=== PATIENT | male | born 1985 | race Caucasian/White ===

== ENCOUNTER 2020-02-28 10:11 | Emergency (ER) | payer BC, SELFPAY ==
--- NOTE | ~2020-02-28 | XR_ITS ---
EXAMINATION: XR foot LT min 3V DATE: 02/28/2020 10:39 INDICATION: Pain at the second and third metatarsophalangeal joints. TECHNIQUE: Dorsoplantar, two oblique and lateral views of the left foot were obtained. COMPARISON: None. FINDINGS: Alignment is normal. Suggestion of subtle linear sclerosis at the proximal metadiaphyseal region of t he third metatarsal suspicious for stress fracture. No periosteal reaction or cortical discontinuity. Joint spaces are normal. No evident cortical erosions. Soft tissues are unremarkable. IMPRESSION: 1. Subtle linear sclerosis at the proximal metadiaphyseal region of the third metatarsal raising susp icion for stress fracture. Correlate clinically and if indicated MRI or three-phase bone scan could b e obtained for more definitive determination. Reviewed, dictated and finalized at location B. IMPRESSION: 1. Subtle linear sclerosis at the proximal metadiaphyseal region of the third m etatarsal raising suspicion for stress fracture. Correlate clinically and if in dicated MRI or three-phase bone scan could be obtained for more definitive dete rmination.
--- NOTE | 2020-02-28 10:16 | ED.GENADULT ---
HPI - General Adult General Chief complaint: Extremity Injury, Lower Stated complaint: left foot painful/swollen Time Seen by Provider: 02/28/20 10:25 Source: patient Mode of arrival: ambulatory Limitations: no limitations History of Present Illness HPI narrative: 34-year-old male patient presents to the [facility] with complaints of pain to the left foot that started yesterday. Patient states that most of this pain is on the sole of his foot right under his second and third toe. Patient denies any injury to the area that he is aware of. Patient states that he does wear steel toed boots for work daily but has never had any problems with that before. Patient states that not standing on the foot and just sitting there he rates his pain at a 7 out of 10 however when he does apply pressure and stand and walk his pain goes up to a 10. Patient states he has been taking ibuprofen for the pain. Related Data Home Medications Medication Instructions Recorded Confirmed No Home Medications 02/28/20 02/28/20 Allergies Allergy/AdvReac Type Severity Reaction Status Date / Time codeine AdvReac Intermediate nausea and Verified 05/20/15 15:51 diaphoresis Review of Systems Review of Systems: Narrative: CONSTITUTIONAL: Denies fever, chills, or sweats. EYES: Denies visual changes, redness, or discharge. ENT: Denies rhinorrhea, congestion, sore throat, or otalgia. CARDIOVASCULAR: Denies chest pain, palpitations, or edema. RESPIRATORY: Denies cough or dyspnea. GASTROINTESTINAL: Denies abdominal pain, nausea, vomiting, or diarrhea. GENITOURINARY: Denies dysuria or hematuria. SKIN: Denies rash or itching. MUSCULOSKELETAL: Denies back pain, joint pain, or myalgia. Positive left foot pain NEUROLOGIC: Denies headache, numbness, or weakness. PSYCHIATRIC: Denies anxiety or depression. PMFSH Comments At the time of my signature I agree with nursing past medical history, surgical, social, and family history. There is no relevant family history pertinent to the presenting complaint. Exam Narrative: Exam Narrative: GENERAL: Well-appearing, well-nourished, and in no acute distress. HEAD: Normocephalic, atraumatic. EYES: PERRLA and EOMI. ENT: Nares clear, no rhinorrhea or epistaxis. Mucous membranes moist. NECK: Supple. No lymphadenopathy CHEST: Clear to auscultation. No respiratory distress. HEART: Regular rate and rhythm. No murmur heard. Normal peripheral pulses. ABDOMEN: Soft, nontender, nondistended, normal active bowel sounds. EXTREMITIES: Normal range of motion. No edema. SKIN: Warm, dry, no rash. NEURO: No focal deficits. Alert and oriented x3. Course Reevaluation(s) Reevaluation #1: Reevaluated patient after x-ray had been completed. Discussed with him that it does show that he has a possible stress fracture to the left foot where he is complaining of pain. Discussed with patient that we will go ahead and wrap his foot with an Pedro wrap as well as put him in Ortho postop shoe. Discussed with patient that I will refer him to the orthopedic surgeon who is on-call for further follow-up. I would also take him off work until he can follow-up with orthopedic surgeon for further evaluation and treatment. Patient may take Tylenol and ibuprofen as needed for pain. Patient verbalized understanding denies any other questions or concerns at this time. Date: 02/28/20 Time: 10:56 Vital Signs Vital signs: Vital Signs Temperature 36.8 C 02/28/20 10:17 Pulse Rate 70 02/28/20 10:17 Respiratory Rate 16 02/28/20 10:17 Blood Pressure 150/95 H 02/28/20 10:17 Pulse Oximetry 99 02/28/20 10:17 Temperature 36.8 C 02/28/20 10:17 Pulse Rate 70 02/28/20 10:17 Respiratory Rate 16 02/28/20 10:17 Blood Pressure 150/95 H 02/28/20 10:17 Pulse Oximetry 99 02/28/20 10:17 Vital signs reviewed. The patient has been informed that they may have pre-hypertension or Hypertension based on a BP reading in the department. I recommen
[2020-02-28 10:17] VITALS: BP 150/95; PULSE 70; RESP 16; TEMP 36.8; O2SAT 99
--- NOTE | 2020-02-28 10:39 | PC.NURSE ---
PT DECLINED ICE FOR COMFORT AND WHEELCHAIR TO RADIOLOGY AND ROOM
== END 2020-02-28 11:05 | disposition home or self-care (01) ==
PROVIDERS: Emergency Provider Nurse Practitioner Family
DX: M84.375A Stress fracture, left foot, initial encounter for fracture (principal); X58.XXXA Exposure to other specified factors, initial encounter
CPT/HCPCS: 73630; 99204; G0463

== ENCOUNTER 2020-03-17 09:08 | Outpatient (CLI) | payer BC, SELFPAY ==
--- NOTE | ~2020-03-17 | MR_ITS ---
EXAMINATION: MR foot LT wo con DATE: 03/17/2020 09:55 INDICATION: Left foot injury, initial encounter. TECHNIQUE: Magnetic resonance imaging (MRI) of the left foot was performed without intravenous contra st. Sequences included sagittal T1-weighted FSE and STIR FSE, long-axis PD-weighted FS FSE and PD-braden ghted FSE, and short-axis PD-weighted FS FSE and T1-weighted FSE. COMPARISON: Left foot radiographs 03/05/2020, 02/28/2020 FINDINGS: Bone alignment is normal. There is bone marrow edema in proximal metaphysis of second proxi mal phalanx at its plantar and lateral aspect, consistent with stress reaction. There is soft tissue edema around this area, and flexor digitorum longus tendon is medially displaced. Lisfranc ligament i s normal. The extensor tendons are normal. The muscles are normal. IMPRESSION: 1. Soft tissue edema plantar to the proximal metaphysis of second proximal phalanx laterally with med ial displacement of the flexor digitorum longus tendon. These findings suggest tear of adjacent struc tures such as the lateral slip of flexor digitorum brevis tendon and the flexor tendon sheath. Reviewed, dictated and finalized at location A. IMPRESSION: 1. Soft tissue edema plantar to the proximal metaphysis of second proximal phal anx laterally with medial displacement of the flexor digitorum longus tendon. T hese findings suggest tear of adjacent structures such as the lateral slip of f lexor digitorum brevis tendon and the flexor tendon sheath.
== END 2020-03-17 09:09 ==
PROVIDERS: Visit Provider Orthopaedic Surgery
DX: S99.929A Unspecified injury of unspecified foot, initial encounter (principal); M79.89 Other specified soft tissue disorders
CPT/HCPCS: 73718

== ENCOUNTER 2020-07-07 22:28 | Inpatient (IN) | payer BC, SELFPAY ==
--- NOTE | ~2020-07-07 | CT_ITS ---
EXAMINATION: CT abdomen pelvis w con DATE: 07/07/2020 23:36 INDICATION: Abdominal pain TECHNIQUE: Computed tomography (CT) of the abdomen and pelvis was performed with 100 mL Omnipaque-350 intravenous contrast. Automated exposure control and iterative reconstruction technique were employe d. The dose-length product was 1443.70 mGy-cm. COMPARISON: None FINDINGS: Lung bases are clear. Heart size is normal. No pericardial or pleural effusion. Liver, gallbladder, s pleen, pancreas, bilateral adrenal glands and kidneys are normal. Moderate scattered diverticulosis w ith sigmoid and descending colon predominance. There is wall thickening along the proximal sigmoid co martin with inflammatory stranding as well as a tiny amount of extraluminal gas tracking posteriorly lacy ng the sigmoid mesentery. There is a small amount of retroperitoneal fluid tracking along the anterio r margin of the left psoas muscle. Additional very small amount of free intraperitoneal fluid in the pelvis. No abscess. Normal small bowel and appendix. Bladder is normal. Tiny fat-containing umbilical hernia. Small fat-containing right inguinal hernia. No pathologically enlarged abdominal or pelvic l ymphadenopathy. Mild thoracolumbar spondylosis and mild bilateral hip osteoarthritis. IMPRESSION: 1. Sigmoid diverticulitis with tiny amount of extraluminal gas consistent with microperforation but w ithout abscess. Reviewed, dictated and finalized at location A. [employer] IMPRESSION: 1. Sigmoid diverticulitis with tiny amount of extraluminal gas consistent with microperforation but without abscess.
[2020-07-07 22:32] VITALS: PULSE 125; RESP 18; TEMP 38.1; O2SAT 100
[2020-07-07 22:37] VITALS: BP 161/82; PULSE 119; RESP 21; O2SAT 99
[2020-07-07 22:50] LABS: Basophils Absolute Auto 0.1 K/mm3 (0.0-0.1); Basophils Percent Auto 0.3 % (0.2-1.2); Eosinophils Percent Auto 0.1 % (0-4.4); Hematocrit 43.1 % (42.0-52.0); Hemoglobin 14.9 g/dL (14.0-18.0); Immature Granulocyte Absolute 0.06 K/mm3 (0.00-0.031); Immature Granulocyte Percent A 0.4 % (0-0.5); Lymphocytes Absolute Auto 1.16 K/mm3 (0.9-3.2); Mean Corpuscular HGB Conc 34.6 g/dl (32-36); Mean Corpuscular Hemoglobin 30.1 pg (26-34); Mean Corpuscular Volume 87.1 fl (80-100); Mean Platelet Volume 8.7 fl (7.4-10.4); Monocytes Absolute Auto 0.9 K/mm3 (0.1-0.6); Monocytes Percent Auto 5.6 % (2.6-8.5); Neutrophils Absolute Auto 14.4 K/mm3 (1.3-6.7); Neutrophils Percent Auto 86.6 % (45.5-73.1); Platelet Count Result 333 k/mm3 (150-375); Red Blood Count 4.95 M/mm3 (4.6-6.20); Red Cell Distribution Width 12.5 % (11.5-14.5); White Blood Count 16.6 K/mm3 (4.5-10.0)
--- NOTE | 2020-07-07 22:53 | ED.ABDPAIN ---
HPI - Abdominal Pain General Chief Complaint: Abdominal Pain Stated Complaint: abd pain Time Seen by Provider: 07/07/20 22:39 Source: patient Mode of arrival: ambulatory Limitations: no limitations History of Present Illness HPI narrative: A 35-year-old male presents to the emergency department [facility] with complaints of left lower quadrant abdominal pain. Patient states that he started earlier today. Initially started as a dull nagging pain which he tried to ignore and went to work. He stated throughout the course of the day at work his pain got gradually worse. He noted that he was feeling warm so when he got home his checked his temperature and stated that it was elevated. Patient states that he has been having normal bowel movements. He denies any dysuria, frequency or urgency. Patient states that the pain does go down into his left groin but does not go into his testicles. He denies any testicular pain. Related Data Home Medications Medication Instructions Recorded Confirmed No Home Medications 07/07/20 07/07/20 Allergies Allergy/AdvReac Type Severity Reaction Status Date / Time codeine AdvReac Intermediate nausea and Verified 07/07/20 22:36 diaphoresis Review of Systems Review of Systems: Narrative: CONSTITUTIONAL: Denies fever, chills, or sweats. EYES: Denies visual changes, redness, or discharge. ENT: Denies rhinorrhea, congestion, sore throat, or otalgia. CARDIOVASCULAR: Denies chest pain, palpitations, or edema. RESPIRATORY: Denies cough or dyspnea. GASTROINTESTINAL: Denies abdominal pain, nausea, vomiting, or diarrhea. Positive tenderness to palpation in the left lower quadrant GENITOURINARY: Denies dysuria or hematuria. SKIN: Denies rash or itching. MUSCULOSKELETAL: Denies back pain, joint pain, or myalgia. NEUROLOGIC: Denies headache, numbness, dizziness, or weakness. PSYCHIATRIC: Denies anxiety or depression. [facility] Family History Family History Other Arthritis Diabetes mellitus Hypertension Malignant neoplasm Social History Social History Smoking status: Never smoker Alcohol intake: current Gender identity (if verbalized by the patient): Male Exam Narrative: Exam Narrative: GENERAL: Well-appearing, well-nourished, and in no acute distress. Warm to the touch HEAD: Normocephalic, atraumatic. EYES: PERRLA and EOMI. ENT: Nares clear, no rhinorrhea or epistaxis. Mucous membranes moist. Oropharynx without tonsillar hypertrophy exudate or other lesions. Bilateral TMs pearly pineda nonbulging NECK: Supple. No adenopathy or masses. No carotid bruits or JVD CHEST: Clear to auscultation. No respiratory distress. No wheezes rales or rhonchi HEART: Tachycardic rate and rhythm. No murmur heard. Normal peripheral pulses. ABDOMEN: Obese abdomen, tenderness to palpation in the left lower quadrant. No hernias, masses felt in the left or right inguinal canal. : Circumcised male, no testicular tenderness or masses palpated EXTREMITIES: Normal range of motion. No edema. SKIN: Warm, dry, no rash. NEURO: No focal deficits. Alert and oriented x3. PSYCH: Normal mood and affect. Course Reevaluation(s) Reevaluation #1: Patient is resting comfortably at this time. He is been updated and reevaluated. No questions at this time. Time: 00:49 Consultations Consultation #1: Case discussed with Dr. Barrera, hospitalist. Pertinent details of the patient's presentation, evaluation and work-up were discussed. She agrees to accept the patient for further admission and work-up. Dr. Barrera does request that general surgery be consulted as well. Time: 00:24 Consultation #2: Case was discussed with Dr. Martini, of general surgery. He agrees to evaluate the patient in the morning. Time: 00:47 Vital Signs Vital signs: Vital Signs Temperature 38.1 C H 07/07/20 22:32 Pulse Rate 125 H 07/07/20 22:3
[2020-07-07 22:54] LABS: Add Urine Microscopic? YES; Appearance Urine Clear (Clear); Bilirubin Urine Negative (Negative); Blood Urine Negative (Negative); Color Urine Straw (Yellow); Glucose Urine UA Negative (Negative); Ketones Urine Trace mg/dL (Negative); Leukocyte Esterase Ur Negative LEU/UL (Negative); Mucus Urine Rare /lpf; Nitrate Urine Negative (Negative); Protein Urine Negative (Negative); Urobilinogen Urine Negative mg/dL (<2.0); WBC Urine 0-3 /hpf
[2020-07-07 23:02] VITALS: BP 102/65; PULSE 107; RESP 24; O2SAT 95
[2020-07-07 23:04] LABS: Alanine Aminotransferase 43 U/L (4-50); Albumin Level 5.1 g/dL (3.5-5.1); Alkaline Phosphatase 83 U/L (38-126); Anion Gap 10 mmol/L (8-16); Aspartate Amino Transferase 35 U/L (17-59); Bilirubin,Total 0.6 mg/dL (0.2-1.3); Blood Urea Nitrogen 15 mg/dL (9-20); Calcium 9.7 mg/dL (8.4-10.2); Carbon Dioxide 27 mmol/L (22-30); Chloride 99 mmol/L (98-107); Estimated CRCL calculation 115 ml/min; Estimated Glomerular Filt Rate > 60; Glucose 127 mg/dL (75-110); Lipase 49 U/L (23-300); Potassium 4.1 mmol/L (3.4-5.0); Sodium 136 mmol/L (137-145)
[2020-07-07] MEDS: LACTATED RINGERS 1,000 ML 999 ML IV CONT (23:13)
[2020-07-07] MEDS: KETOROLAC 15 MG/ML VIAL (*BKC) IV PUSH (23:13)
[2020-07-07 23:41] LABS: INR 0.9; Prothrombin Time 13.2 Seconds (11.1-14.7)
[2020-07-07 23:42] VITALS: BP 147/75; PULSE 107; RESP 22; TEMP 39.5; O2SAT 100
[2020-07-07 23:42] LABS: Partial Thromboplastin Time 28.8 SECONDS (22.3-36.8)
[2020-07-07 23:43] VITALS: TEMP 38
[2020-07-08] VITALS (9 sets, daily range): BP systolic 101–150; BP diastolic 48–79; PULSE 64–101; RESP 14–28; TEMP 36.9–38; O2SAT 96–100; BMI 38.2
[2020-07-08 00:06] LABS: Lactic Acid Reflex 1.3 mmol/L (0.7-2.1)
[2020-07-08] MEDS: LACTATED RINGERS 1,000 ML 999 ML IV CONT (00:36)
[2020-07-08 00:39] LABS: CRP 5.3 mg/dL (<1.0)
[2020-07-08] MEDS: ONDANSETRON INJ 4 MG/2 ML VIAL IV PUSH (00:39)
--- NOTE | 2020-07-08 01:48 | ADMGEN ---
This patient, Ed John, was admitted to Medical Room 242-. Patient/family oriented to hospital policies and general routines including ID bracelet, bed and alarms, visiting hours, pain management, procedures, bathroom and other care routines, personal items, smoking policy, room service/diet, and visiting hours. Information on how to activate the Rapid Response Team has been discussed. Patient/Family are encouraged to report perceived risks to care and to ask questions if they do not understand what they are told or what they should do.
[2020-07-08] MEDS: MORPHINE SULFATE (*CRX) 4 MG/ML INJ IV PUSH ×5 (01:50→20:32)
[2020-07-08] MEDS: LACTATED RINGERS 1,000 ML 125 ML IV CONT ×3 (01:52→23:46)
[2020-07-08] MEDS: IBUPROFEN 600 MG TABLET PO (05:31)
--- NOTE | 2020-07-08 09:27 | PM.IMHP ---
H&P: HPI History of Present Illness Date/Time: 07/08/20 09:27 Chief Complaint: Chief complaint. Abdominal pain for 1 day Narrative: Ed John is a 35 year old male admitted through the emergency room with complaints of having left lower quadrant abdominal pain going on for the last few hours before coming to the emergency room. According to the patient patient pain is dull in nature nonradiating increase with movement and decreased with rest. Patient also have mild nausea associated with it. No fever or chills. No nausea no constipation. No shortness of breath or chest pain. Review of Systems Review of Systems: All systems reviewed & are unremarkable except as noted in HPI and below (the history and physical examination) [facility] Family History Family History (Updated 07/08/20 @ 01:53 by Margot Verdin RN) Mother Arthritis Grandparent Diabetes mellitus Father Hypertension Grandparent Malignant neoplasm Social History Social History Smoking status: Never smoker Alcohol intake: current Drinks per week: 6 Substance use: never Gender identity (if verbalized by the patient): Male Spiritual care concerns: No Meds Home Medications and Allergies Home Medications Medication Instructions Recorded Confirmed Type No Home Medications 07/07/20 07/07/20 History Allergies Allergy/AdvReac Type Severity Reaction Status Date / Time codeine AdvReac Intermediate nausea and Verified 07/08/20 02:18 diaphoresis Vital Signs Vital Signs - 24 hr 07/07/20 22:32 07/07/20 22:37 07/07/20 23:02 Temperature 38.1 C H Pulse Rate 125 H 119 H 107 H Respiratory Rate 18 21 H 24 H Blood Pressure 161/82 H 102/65 Pulse Oximetry 100 99 95 07/07/20 23:42 07/07/20 23:43 07/08/20 00:20 Temperature 39.5 C H 38.0 C H 38.0 C H Pulse Rate 107 H 94 Respiratory Rate 22 H 22 H Blood Pressure 147/75 H 114/66 Pulse Oximetry 100 99 07/08/20 00:31 07/08/20 01:01 07/08/20 01:52 Temperature 37.9 C H 37.9 C H Pulse Rate 95 89 101 H Respiratory Rate 24 H 25 H 18 Blood Pressure 101/53 L 101/64 150/79 H Pulse Oximetry 100 100 99 07/08/20 05:30 Temperature 37.2 C Pulse Rate 86 Respiratory Rate 16 Blood Pressure 122/48 L Pulse Oximetry 97 Exam Const: General: cooperative and no acute distress Orientation/consciousness: oriented to person, oriented to place, oriented to time and patient oriented x3 HENMT: Head: normal to inspection Ears: hearing grossly normal bilaterally and external ears normal General nose exam: Normal external nose present Face and sinus: normal facial exam Mouth: Yes Normal oral and palatal mucosa present Eyes: General: appearance normal, both eyes and all related structures Neck: Neck: normal visual inspection and full ROM Chest: Chest palpation & inspection: normal inspection of the chest and normal palpation of entire chest wall Resp: Effort & Inspection: normal respiratory effort Auscultation: clear to auscultation bilaterally Cardio: Jugular venous distension: no JVD Palpation: normal PMI Rate: regular rate Heart sounds: S1 normal heart sound present and S2 normal heart sound present GI: Inspection: normal to inspection GI Palp: Yes abdominal tenderness Neuro: General: oriented to person, oriented to place, oriented to time and patient oriented x3 Cranial nerves: Yes CN's II-XII intact bilaterally Speech: normal speech Gait exam (Neuro): Normal gait present Motor exam (neuro): 5/5 motor strength present throughout Sensory Exam: normal sensation Psych: Appearance: grossly normal H&P: Results Labs Labs: Short CBC 07/07/20 Range/Units 22:43 WBC 16.6 H (4.5-10.0) K/mm3 Hgb 14.9 (14.0-18.0) g/dL Hct 43.1 (42.0-52.0) % Plt Count 333 (150-375) k/mm3 [facility] 07/07/20 22:43 Sodium 136 L Potassium 4.1 Chloride 99 Carbon Dioxide 27 BUN 15 Creatinine 1.00 Glucose 1
--- NOTE | 2020-07-08 10:04 | PM.CNGS ---
Assessment and Plan Assessment and plan (1) Diverticulitis of colon with perforation: Code(s): K57.20 - Diverticulitis of large intestine with perforation and abscess without bleeding Status: Acute Assessment and Plan: CT scan reviewed and discussed with the patient in detail. He has evidence of acute sigmoid diverticulitis with micro perforation. No formed abscess seen on the CT. This is his 1st episode of diverticulitis and he has no history of a previous colonoscopy. We would recommend to continue broad-spectrum IV antibiotics, analgesics, and IV fluids. Patient is currently tolerating clear liquids, which is okay from our standpoint at this time. I discussed the pathophysiology of this disease process and the treatment plan. I also discussed with the patient that typically this improves with IV antibiotics, but there is a possibility forming an abscess and needing further treatment. We will slowly advance the patient's diet depending on how he progresses with the current treatment, and he will eventually require low-fiber diet on discharge. We will continue to monitor the patient with serial abdominal exams and follow his labs. (2) Sepsis due to undetermined organism: Code(s): A41.9 - Sepsis, unspecified organism Status: Acute Assessment and Plan: Sepsis criteria met on admission with leukocytosis, tachycardia, and fever. Source as above. Continue broad-spectrum IV antibiotics. Received 2 IV fluid boluses in the ER and has been started on continuous IV fluids. Blood cultures pending. Lactic acid normal. Tachycardia has improved with now a normal heart rate. Afebrile this morning. Blood pressure stable. (3) Umbilical hernia: Code(s): K42.9 - Umbilical hernia without obstruction or gangrene Status: Acute Assessment and Plan: Very small fat containing umbilical hernia. Not causing any acute issues or the reason for his current hospitalization. (4) Obesity (BMI 30-39.9): Code(s): E66.9 - Obesity, unspecified Status: Acute Additional Plan Discussed the patient case and plan of care with Dr. Martini. Thank you for allowing us to see the patient in consultation we will continue to follow along with you. History of Present Illness Consult details Consult date: 07/08/20 Reason for consult: other (Acute sigmoid diverticulitis with micro perforation) Requesting physician: Jaden Walsh DO Narrative: This is a 35-year-old male with no known medical history, who presented to the emergency department with complaints of left lower quadrant abdominal pain. He reports initially noting pain 2 days ago that was mild. He had recently been doing a lot of lifting and thought he may have pulled a muscle. Yesterday, the pain worsened and he developed chills. Due to the unrelenting pain, he presented to the emergency department for further evaluation last night. CT scan of the abdomen and pelvis showed acute sigmoid diverticulitis with microperforation but no formed abscess. Labs revealed a white blood cell count of 16,600, lactic acid 1.3, and CRP 5.3. On arrival to the ED, he had a heart rate of 125 and temperature of a 100.5? F. The patient was started on broad-spectrum IV antibiotics and admitted to the hospitalist service. Our service has been consulted for the diverticulitis with microperforation. The patient is now being seen on medical floor. He reports some improvement in his abdominal pain since admission. He reports left lower quadrant and suprapubic pain, rating this at a 5/10 on a pain scale. Denies any nausea or vomiting. Reports his bowels have been moving normally for him, with his last bowel movement yesterday. Denies any history of diverticulitis or having a colonoscopy in the past. No other complaints at this time. Review of Systems Constitutional: Constitutional: Reports as per HPI, Reports chills, Denies fatigue, Reports fever(s) and Denies headache(s)
[2020-07-09 06:00] VITALS: BP 123/59; PULSE 74; RESP 16; TEMP 36.6; O2SAT 98
[2020-07-09 06:05] LABS: Basophils Percent Auto 0.3 % (0.2-1.2); Eosinophils Percent Auto 0.2 % (0-4.4); Hemoglobin 11.9 g/dL (14.0-18.0); Immature Granulocyte Absolute 0.06 K/mm3 (0.00-0.031); Immature Granulocyte Percent A 0.5 % (0-0.5); Lymphocytes Absolute Auto 2.56 K/mm3 (0.9-3.2); Lymphocytes Percent Auto 19.3 % (18.3-44.2); Mean Corpuscular HGB Conc 33.1 g/dl (32-36); Mean Corpuscular Hemoglobin 29.3 pg (26-34); Mean Corpuscular Volume 88.7 fl (80-100); Mean Platelet Volume 8.9 fl (7.4-10.4); Monocytes Percent Auto 7.3 % (2.6-8.5); Neutrophils Absolute Auto 9.6 K/mm3 (1.3-6.7); Neutrophils Percent Auto 72.4 % (45.5-73.1); Platelet Count Result 251 k/mm3 (150-375); Red Blood Count 4.06 M/mm3 (4.6-6.20); Red Cell Distribution Width 12.4 % (11.5-14.5); White Blood Count 13.3 K/mm3 (4.5-10.0)
[2020-07-09 06:06] LABS: Alanine Aminotransferase 25 U/L (4-50); Albumin Level 3.8 g/dL (3.5-5.1); Alkaline Phosphatase 55 U/L (38-126); Anion Gap 6 mmol/L (8-16); Aspartate Amino Transferase 21 U/L (17-59); Bilirubin,Total 0.9 mg/dL (0.2-1.3); Blood Urea Nitrogen 8 mg/dL (9-20); Calcium 8.7 mg/dL (8.4-10.2); Carbon Dioxide 29 mmol/L (22-30); Chloride 102 mmol/L (98-107); Estimated CRCL calculation 115 ml/min; Estimated Glomerular Filt Rate > 60; Glucose 105 mg/dL (75-110); Magnesium 1.9 mg/dL (1.6-2.3); Potassium 4.1 mmol/L (3.4-5.0); Sodium 137 mmol/L (137-145)
--- NOTE | 2020-07-09 09:29 | PM.PNGS ---
Progress Note: A&P Assessment and Plan (1) Diverticulitis of colon with perforation: Code(s): K57.20 - Diverticulitis of large intestine with perforation and abscess without bleeding Status: Acute Assessment and Plan: CT showed evidence of acute sigmoid diverticulitis with microperforation. Patient is clinically improving. WBC trending down, afebrile over past 24 hours. Will advance diet to full liquids today. Last Sawyer consulted to discuss low vs high fiber diet - he will need to be discharged on low fiber diet eventually. Continue broad-spectrum IV antibiotics. (2) Sepsis due to undetermined organism: Code(s): A41.9 - Sepsis, unspecified organism Status: Acute Assessment and Plan: Sepsis criteria met on admission with leukocytosis, tachycardia, and fever. Source as above. Continue broad-spectrum IV antibiotics. Received appropriate IV fluid resuscitation. Blood cultures NGTD. Lactic acid normal. Remains afebrile. (3) Umbilical hernia: Code(s): K42.9 - Umbilical hernia without obstruction or gangrene Status: Acute (4) Obesity (BMI 30-39.9): Code(s): E66.9 - Obesity, unspecified Status: Acute Additional Plan Discussed the plan of care with Dr. Martini. Subjective Subjective Date/Time Seen: 07/09/20 09:15 Patient reports: no new complaints, feels better, pain is less, tolerating liquids well, flatus and bowel movement Interval history: Patient this morning has tolerated his clear liquid diet. Reports some increased abdominal pain overnight, controlled with PRN analgesics. This morning, his abdominal pain has significantly improved and he states is in half of the pain yesterday. Denies nausea or vomiting. Reports flatus and 2 BMs this morning that were loose, no blood. No other complaints. Review of Systems Review of Systems: All systems reviewed & are unremarkable except as noted in HPI and below Constitutional: Constitutional: Reports no additional constitutional complaints, Denies chills and Denies fever(s) Cardiovascular: Cardiovascular: Reports no additional cardiovascular complaints and Denies chest pain Gastrointestinal: Gastrointestinal: Reports as per HPI and Reports no additional gastrointestinal complaints Exam Const: General: no acute distress and awake Orientation/consciousness: patient oriented x3 Resp: Effort & Inspection: normal respiratory effort and able to speak in complete sentences Auscultation: clear to auscultation bilaterally Cardio: Rate: regular rate Rhythm: regular rhythm GI: Inspection: normal to inspection, non-distended and obesity (Protuberant) GI Palp: Yes Soft to palpation, Yes Tenderness to palpation present (GI) (suprapubic, LLQ - improved), No Guarding due to palpation present (GI) and No Rebound tenderness present Auscultation: normal bowel sounds Skin: General skin exam: normal color Neuro: General: moves all extremities and no focal motor deficits Extrem: General: normal to inspection and no clubbing, cyanosis or edema Psych: Appearance: grossly normal Mental Status: mental status grossly normal Insight: Good insight present (Psych) Judgement: Good judgement present (Psych) Objective Data Vital Signs Vital Signs: Vital Signs - 24 hr 07/08/20 14:00 07/08/20 16:15 07/08/20 20:00 Temperature 98.9 F Pulse Rate 64 78 Respiratory Rate 18 14 Blood Pressure 102/55 L Pulse Oximetry 97 96 98 07/08/20 20:29 07/09/20 06:00 Temperature 98.5 F 97.9 F Pulse Rate 78 74 Respiratory Rate 14 16 Blood Pressure 139/49 L 123/59 L Pulse Oximetry 98 98 Intake/Output Intake/Output: Intake & Output 07/06/20 07/07/20 07/08/20 07/09/20 23:59 23:59 23:59 23:59 Intake Total 4070 1620 Output Total 1750 750 Balance 2320 870 Meds/Results Medications: Active Medications Generic Name Dose Route Start Last Admin Trade Name Freq PRN Reason Stop Dose Admin Piperacillin/Tazobactam/Dextrose 3.
--- NOTE | 2020-07-09 12:14 | PCDIET ---
Physician consult for low vs high fiber diet. See Nutritional Teaching Intervention. Patient has my card for any further questions or concerns. Thank you for the consult.
--- NOTE | 2020-07-09 12:29 | PM.IMPN ---
Progress Note: A&P Assessment and Plan (1) Acute diverticulitis: Code(s): K57.92 - Diverticulitis of intestine, part unspecified, without perforation or abscess without bleeding Status: Acute Assessment and Plan: CT showed evidence of acute sigmoid diverticulitis with microperforation. Significant clinical improvement today. On IV zosyn since admission. Leukocytosis improving. Afebrile >24 hours; VSS. Tolerating diet thus far. Having BMs General surgery following and appreciate recommendations Defer diet advancement to General Surgery PO pain medication PRN per General Surgery rec Continue IV zosyn Continue IVF for now Monitor labs (2) Sepsis due to undetermined organism: Code(s): A41.9 - Sepsis, unspecified organism Status: Acute Assessment and Plan: SIRS criteria with leukocytosis, tachycardia, and fever; suspected source is diverticulitis. Blood cultures NGTD x 2 days. Lactic acid WNL on arrival Continue treatment for diverticulitis as noted above Monitor labs Subjective Date/time seen: 07/09/20 12:29 Interval history: Patient is a 35 yo obese M with no significant medical conditions who is seen in follow up for Diverticulitis, sepsis. Patient feels much better today. Pain is no greater than a 4 or 5/10 today, but is able to move around the room without significant pain. Pain limited to LLQ. No n/v. Tolerating diet thus far. Having soft, nonbloody bms today. No other complaints. Denies f/c/s, headaches, dizziness, lightheadedness, cp/palpitations, sob/cough, calf pain/swelling. Review of Systems Review of Systems: All systems reviewed & are unremarkable except as noted in HPI and below Exam Narrative: Exam Narrative: General: Patient resting supine in bed in no acute distress. HEENT: Normocephalic, EOMI, oral mucosa moist. Cardiovascular: Rate and rhythm are regular. No notable murmur, rub, or gallop. Respiratory: Lungs clear to auscultation all cross. Non-labored breathing. Abdomen: Soft, TTP LLQ, guarding, non-distended, bowel sounds present. Extremities: Peripheral pulses intact. No edema. NTTP b/l calves Neuro: No focal neurological deficits. Speech is clear. Objective Data Vital Signs Vital Signs: Last Vital Signs Temp 97.9 F 07/09/20 06:00 Pulse 74 07/09/20 06:00 Resp 16 07/09/20 06:00 BP 123/59 L 07/09/20 06:00 Pulse Ox 98 07/09/20 06:00 Intake/Output Intake/Output: Intake & Output 07/06/20 07/07/20 07/08/20 07/09/20 23:59 23:59 23:59 23:59 Intake Total 4070 2520 Output Total 1750 750 Balance 2320 1770 Meds/Results Medications: Active Medications Generic Name Dose Route Start Last Admin Trade Name Freq PRN Reason Stop Dose Admin Hydrocodone Bitart/Acetaminophen 1 tab 07/09/20 10:28 Hydrocodone/Acetaminophen (*Crx) 5-325 Mg Tablet PO Q6H PRN Pain Rated 4-6 Piperacillin/Tazobactam/Dextrose 3.375 gm in 50 mls @ 100 mls/hr 07/08/20 05:00 07/09/20 11:58 Zosyn 3.375 Gm/D5w 50ml Pm IVPB 100 mls/hr Q6H CARROLL Administration Ibuprofen 800 mg 07/09/20 10:28 Ibuprofen 400 Mg Tablet PO Q8H PRN pain level 1- 3 Magnesium Oxide 400 mg 07/10/20 09:00 Magnesium Oxide 400 Mg [facility] Morph[facility] Sulfate 4 mg 07/08/20 00:37 07/08/20 20:32 Morphine Sulfate (*Crx) 4 Mg/Ml Inj IV PUSH 4 mg Q2H PRN Administration Pain Rated 7-10 Morphine Sulfate 2 mg 07/08/20 10:24 Morphine Sulfate (*Crx) 2 Mg/Ml Inj IV PUSH Q2H PRN Pain Rated 4-6 Ondansetron HCl 4 mg 07/08/20 00:37 Ondansetron Inj 4 Mg/2 Ml Vial IV PUSH Q4H PRN Nausea Radiology Results: ITS Impressions Abdomen/Pelvis CT 07/07/20 23:37 IMPRESSION: 1. Sigmoid diverticulitis with tiny amount of extraluminal gas consistent with microperforation but without abscess. Labs Labs: Laboratory Tests
[2020-07-09 14:00] VITALS: BP 125/69; PULSE 61; RESP 16; TEMP 36.3; O2SAT 97
[2020-07-09 20:05] VITALS: PULSE 61; RESP 16; O2SAT 97
[2020-07-09 22:00] VITALS: BP 125/67; PULSE 55; RESP 18; TEMP 36.6; O2SAT 99
[2020-07-10 04:56] VITALS: BP 136/70; PULSE 71; RESP 16; TEMP 36.6; O2SAT 98
[2020-07-10 05:41] LABS: Hematocrit 36.9 % (42.0-52.0); Hemoglobin 12.3 g/dL (14.0-18.0); Mean Corpuscular HGB Conc 33.3 g/dl (32-36); Mean Corpuscular Hemoglobin 29.9 pg (26-34); Mean Corpuscular Volume 89.8 fl (80-100); Mean Platelet Volume 8.9 fl (7.4-10.4); Platelet Count Result 257 k/mm3 (150-375); Red Blood Count 4.11 M/mm3 (4.6-6.20); Red Cell Distribution Width 12.4 % (11.5-14.5); White Blood Count 10.4 K/mm3 (4.5-10.0)
[2020-07-10 05:47] LABS: Anion Gap 6 mmol/L (8-16); Blood Urea Nitrogen 6 mg/dL (9-20); Carbon Dioxide 29 mmol/L (22-30); Chloride 102 mmol/L (98-107); Estimated CRCL calculation 115 ml/min; Estimated Glomerular Filt Rate > 60; Glucose 101 mg/dL (75-110); Potassium 4.3 mmol/L (3.4-5.0); Sodium 137 mmol/L (137-145)
[2020-07-10 05:52] LABS: Magnesium 2.1 mg/dL (1.6-2.3)
--- NOTE | 2020-07-10 08:41 | PM.PNGS ---
Progress Note: A&P Assessment and Plan (1) Acute diverticulitis: Code(s): K57.92 - Diverticulitis of intestine, part unspecified, without perforation or abscess without bleeding Status: Acute Assessment and Plan: continues to improve. Okay to discharge from surgical standpoint on low-fiber low residue diet. He should go home on 10 days of Levaquin and metronidazole. He will see Dr. Martini in approximately 10 days in the office. He can return to work 1 week from Monday. Subjective Subjective Date/Time Seen: 07/10/20 08:41 Patient reports: no new complaints, feels better, pain is less, tolerating a regular diet ( Low residue diet), bowel movement and afebrile Review of Systems Review of Systems: All systems reviewed & are unremarkable except as noted in HPI and below Constitutional: Constitutional: Denies body ache(s), Denies chills, Denies fever(s) and Denies headache(s) Cardiovascular: Cardiovascular: Denies chest pain and Denies dyspnea Gastrointestinal: Gastrointestinal: Reports as per HPI, Reports abdominal pain ( nearly gone), Reports change in bowel habits ( several BMs yesterday, somewhat loose), Denies nausea and Denies vomiting Neurologic: Denies confusion and Denies headache(s) Exam Const: General: comfortable and no acute distress; No confusion Orientation/consciousness: patient oriented x3 and No confusion GI: Inspection: normal to inspection and non-distended GI Palp: Yes Soft to palpation, Yes Tenderness to palpation present (GI) ( suprapubic area just left of midline), No Guarding due to palpation present (GI), Yes Palpable mass present ( fullness in the left suprapubic area consistent with inflammatory mass) and No Rebound tenderness present Auscultation: normal bowel sounds Neuro: General: patient oriented x3, no focal motor deficits and No confusion Extrem: General: no calf tenderness and no edema Psych: Affect: normal affect Insight: Good insight present (Psych) Judgement: Good judgement present (Psych) Objective Data Vital Signs Vital Signs: Vital Signs - 24 hr 07/09/20 14:00 07/09/20 20:05 07/09/20 22:00 Temperature 36.3 C L 36.6 C Pulse Rate 61 61 55 L Respiratory Rate 16 16 18 Blood Pressure 125/69 125/67 Pulse Oximetry 97 97 99 07/10/20 04:56 Temperature 36.6 C Pulse Rate 71 Respiratory Rate 16 Blood Pressure 136/70 Pulse Oximetry 98 Intake/Output Intake/Output: Intake & Output 07/07/20 07/08/20 07/09/20 07/10/20 23:59 23:59 23:59 23:59 Intake Total 4070 4210 650 Output Total 1750 1950 1000 Balance 2320 2260 -350 Meds/Results Medications: Active Medications Generic Name Dose Route Start Last Admin Trade Name Freq PRN Reason Stop Dose Admin Hydrocodone Bitart/Acetaminophen 1 tab 07/09/20 10:28 Hydrocodone/Acetaminophen (*Crx) 5-325 Mg Tablet PO Q6H PRN Pain Rated 4-6 Piperacillin/Tazobactam/Dextrose 3.375 gm in 50 mls @ 100 mls/hr 07/08/20 05:00 07/10/20 06:10 Zosyn 3.375 Gm/D5w 50ml Pm IVPB Infused Q6H CARROLL Infusion Ibuprofen 800 mg 07/09/20 10:28 Ibuprofen 400 Mg Tablet PO Q8H PRN pain level 1- 3 Magnesium Oxide 400 mg 07/10/20 09:00 Magnesium Oxide 400 Mg Tablet PO QAM CARROLL Morphine Sulfate 4 mg 07/08/20 00:37 07/08/20 20:32 Morphine Sulfate (*Crx) 4 Mg/Ml Inj IV PUSH 4 mg Q2H PRN Administration Pain Rated 7-10 Morphine Sulfate 2 mg 07/08/20 10:24 Morphine Sulfate (*Crx) 2 Mg/Ml Inj IV PUSH Q2H PRN Pain Rated 4-6 Ondansetron HCl 4 mg 07/08/20 00:37 Ondansetron Inj 4 Mg/2 Ml Vial IV PUSH Q4H PRN Nausea Radiology Results: ITS Impressions Abdomen/Pelvis CT 07/07/20 23:37 IMPRESSION: 1. Sigmoid diverticulitis with tiny amount of extraluminal gas consistent with microperforation but without abscess. Labs Labs: Laboratory Results - last 24 hr 07/10/20 07/10/20 07/10/20 05:10 05:10 05:10 WBC 10.4 H
[2020-07-10] MEDS: MAGNESIUM OXIDE 400 MG TABLET PO (10:05)
--- NOTE | 2020-07-10 12:25 | PM.DS ---
DS: Admitting Diagnosis Admitting Diagnosis Admitting Diagnosis: Acute diverticulitis, sepsis DS: Discharge Diagnosis Discharge Diagnosis (1) Acute diverticulitis: Code(s): K57.92 - Diverticulitis of intestine, part unspecified, without perforation or abscess without bleeding Status: Acute Assessment and Plan: CT showed evidence of acute sigmoid diverticulitis with microperforation. Significant clinical improvement today. On IV zosyn 07/07 - 07/10 with significant improvement. Leukocytosis improving. Afebrile >48 hours; VSS. Tolerating Low fiber diet this afternoon. Having nonbloody BMs General surgery following and appreciate recommendations Low diet at discharge Antibiotics per General Surgery recommendations Recommended tylenol for pain F/u with General Surgery per their recommendations D/c home today (2) Sepsis due to undetermined organism: Code(s): A41.9 - Sepsis, unspecified organism Status: Acute Assessment and Plan: SIRS criteria with leukocytosis, tachycardia, and fever; suspected source is diverticulitis. Blood cultures NGTD x 3 days. Lactic acid WNL on arrival. Leukocytosis improving, tachycardia and fever resolved Continue treatment for diverticulitis as noted above DS: Summary Hospital Course Reason for hospitalization: Acute diverticulitis, sepsis Hospital Course: Date of arrival: 07/07/20 Date of discharge: 07/10/20 Patient is a 35 yo M with no known medical history who presented to the ED on 07/07 with complaints of LLQ abdominal pain. While in the ED, labs showed leukocytosis, CT abd/pelvis showed sigmoid diverticulitis with tiny amount of extraluminal gas consistent with microperforation but without abscess . He met SIRS criteria with tachycardia, fever and leukocytosis. He was placed on Zosyn in ED. General Surgery was consulted from the ED. Patient admitted under this setting. Please see H&P for further details. Patient was admitted to the hospitalist service for further management/treatment. Patient was placed on NPO diet and diet was slowly advanced during stay. He was continued on IV zosyn throughout his stay. He started having return of bowel function. Pain significantly improved and was minimal on day of discharge. On 07/10, patient was okay for discharge from General surgery standpoint and he was to be discharge on Flagyl and Levaquin to complete 10 days. He was to follow up with them as an outpatient. Low fiber diet was recommended during acute infection/inflammation stage. Patient agreeable and comfortable with plan for discharge. Patient hemodynamically stable and in improved condition for discharge on 07/10 Status at Discharge Overall status at discharge: patient is progressing back to baseline Time Spent with Patient Time attestation: Total time spent providing and/or coordinating discharge services: Time spent: Greater than 30 minutes Exam Narrative: Exam Narrative: General: Patient sitting upright on side of bed in no acute distress. Eating low fiber lunch at time of visit without issues HEENT: Normocephalic, EOMI, oral mucosa moist. Cardiovascular: Rate and rhythm are regular. No notable murmur, rub, or gallop. Respiratory: Lungs clear to auscultation all cross. Non-labored breathing. Abdomen: Soft, minimal TTP LLQ, no guarding, non-distended, bowel sounds present. Extremities: Peripheral pulses intact. No edema. NTTP b/l calves Neuro: No focal neurological deficits. Speech is clear. DS: Data Data Completed and Pending Labs on day of discharge: Laboratory Tests 07/10/20 05:10 07/10/20 05:10 Microbiology 07/07/20 23:17 Blood Blood Culture - Preliminary 07/07/20 23:22 Blood Blood Culture - Preliminary Last Vital Signs Temp 97.9 F 07/10/20 04:56 Pulse 71 07/10/20 04:56 Resp 16 07/10/20 04:56 BP 136
== END 2020-07-10 14:40 | disposition home or self-care (01) | DRG 872 ==
LOC: ANHED 07-08 00:50 → ANH2MED 07-08 01:54
PROVIDERS: General Practice; Nurse Practitioner Family; Admitting Provider Internal Medicine; Emergency Provider Emergency Medicine; Visit Provider Physician Assistant
DX: A41.9 Sepsis, unspecified organism (principal); K57.20 Diverticulitis of large intestine with perforation and abscess without bleeding; K42.9 Umbilical hernia without obstruction or gangrene; E66.9 Obesity, unspecified; Z68.38 Body mass index [BMI] 38.0-38.9, adult; Z23 Encounter for immunization
CPT/HCPCS: 36415; 74177; 80048; 80053; 81001; 83605; 83690; 83735; 85025; 85027; 85610; 85730; 86140; 87040; 90471; 90653; 96365; 96375; 99285; A9270; G0008; J0131; J1885; J2270; J2405; J2543; J7120; Q9967

== ENCOUNTER 2020-07-14 12:37 | Outpatient (CLI) | payer BC, SELFPAY ==
--- NOTE | ~2020-07-14 | CT_ITS ---
EXAMINATION: CT abdomen pelvis wo con EXAM DATE: 07/14/2020 13:03 INDICATION: K57.92 - Diverticulitis of intestine, part unspecified. Dizziness. TECHNIQUE: Spiral CT of the abdomen and pelvis was performed without contrast. Axial, coronal and s agittal images were reviewed. The dose-length product (DLP) for this examination was 1363.92 mGy-cm. The exposure was tailored according to patient size (auto mA exposure control), and iterative recon struction (ASIR) was used as additional dose reduction technique. Comparison is made to prior examina tion from 07/07/2020. FINDINGS: Again there is acute sigmoid diverticulitis. In the location where there was previously see n punctate focus of extraluminal gas which was microperforation, there is now a focal fluid collectio n, early developing abscess measuring about 2 x 4 cm. No gross free intraperitoneal air. Mild scatter ed colonic diverticulosis. The liver, spleen, adrenal glands and pancreas are unremarkable. Gallbladder is unremarkable. No bi liary obstruction. There is no nephrolithiasis or hydronephrosis. The prostate is unremarkable. Th ere is small left inguinal hernia. The bladder is unremarkable. There is no retroperitoneal or pelv ic lymphadenopathy. The appendix is normal. The stomach and small bowel are unremarkable. The heart is normal in size. There are no pericardial or pleural effusions. The lung bases are unremarkable. There are no osteo blastic or osteolytic lesions identified. IMPRESSION: Acute sigmoid diverticulitis with development of small peridiverticular abscess. Reviewed, dictated and finalized at location A. METRY TECH IMPRESSION: Acute sigmoid diverticulitis with development of small peridivertic ular abscess.
[2020-07-14 13:30] LABS: Basophils Percent Auto 0.3 % (0.2-1.2); Hematocrit 39.5 % (42.0-52.0); Hemoglobin 13.3 g/dL (14.0-18.0); Immature Granulocyte Absolute 0.08 K/mm3 (0.00-0.031); Immature Granulocyte Percent A 0.6 % (0-0.5); Lymphocytes Absolute Auto 0.55 K/mm3 (0.9-3.2); Mean Corpuscular HGB Conc 33.7 g/dl (32-36); Mean Corpuscular Hemoglobin 29.5 pg (26-34); Mean Corpuscular Volume 87.6 fl (80-100); Mean Platelet Volume 8.4 fl (7.4-10.4); Monocytes Absolute Auto 0.8 K/mm3 (0.1-0.6); Monocytes Percent Auto 5.9 % (2.6-8.5); Neutrophils Absolute Auto 12.1 K/mm3 (1.3-6.7); Neutrophils Percent Auto 89.2 % (45.5-73.1); Platelet Count Result 334 k/mm3 (150-375); Red Blood Count 4.51 M/mm3 (4.6-6.20); Red Cell Distribution Width 12.3 % (11.5-14.5); White Blood Count 13.6 K/mm3 (4.5-10.0)
[2020-07-14 13:43] LABS: Anion Gap 8 mmol/L (8-16); Blood Urea Nitrogen 12 mg/dL (9-20); Calcium 9.3 mg/dL (8.4-10.2); Carbon Dioxide 27 mmol/L (22-30); Chloride 100 mmol/L (98-107); Estimated Glomerular Filt Rate > 60; Glucose 146 mg/dL (75-110); Potassium 4.1 mmol/L (3.4-5.0); Sodium 135 mmol/L (137-145)
== END 2020-07-14 12:38 | disposition home or self-care (01) ==
PROVIDERS: Visit Provider Surgery
DX: K57.92 Diverticulitis of intestine, part unspecified, without perforation or abscess without bleeding (principal); K57.20 Diverticulitis of large intestine with perforation and abscess without bleeding
CPT/HCPCS: 36415; 74176; 80048; 85025

== ENCOUNTER 2022-12-02 14:23 | Emergency (ER) | payer BC, SELFPAY ==
[2022-12-02 14:35] VITALS: BP 140/94; PULSE 67; RESP 18; TEMP 36.8; O2SAT 98
--- NOTE | 2022-12-02 14:44 | ED.SKABFB ---
HPI - Skin/Abscess/Foreign Bdy General Chief complaint: Skin/Abscess/Foreign Body Stated complaint: poison oak/kyle on legs Source: patient and RN notes reviewed History of Present Illness HPI narrative: 37 yo M presents to urgent care with complaints of an itchy rash to his lower legs x 2 days. Pt states this happens about 2-3 times/year. Pt states he was out in the [place] working 2 days ago. Pt states he feels like the rash is getting on his face and his arms now. Denies any fevers, chills, chest pain, SOB, or vomiting. Pt has not taken anything for his rash. Related Data Allergies Allergy/AdvReac Type Severity Reaction Status Date / Time codeine AdvReac Intermediate nausea and Verified 12/02/22 14:29 diaphoresis Review of Systems Review of Systems: Pertinent positives and pertinent negatives per HPI. [facility] Past Medical History Medical History (Updated 12/02/22 @ 14:44 by Sujatha Krueger, TRISHA) Diverticulitis of colon with perforation Surgical History Surgical History No significant past surgical history Family History Family History Mother Arthritis Grandparent Diabetes mellitus Father Hypertension Grandparent Malignant neoplasm Social History Social History Social History: The patient lives at home with his and 4 kids. He does not have a power of litigation attorney, but delegates his , Funmilayo, to be his medical decision maker if needed. He wishes to be a full code. 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 There is no relevant family history pertinent to the patient complaint. Exam Narrative: GENERAL: This is a well-nourished, well-developed patient, in no apparent distress. HEAD: normocephalic, atraumatic. EYES: Sclera clear/white. Vision is grossly intact. EARS: External ears normal, auditory canals clear and without drainage, TMs normal without perforation. Hearing grossly intact. NOSE: External nose normal with no obvious nasal discharge, nares without redness, no rhinorrhea. CARDIOVASCULAR: Regular rate and rhythm without murmurs, gallops, or rubs. RESPIRATORY: Clear to auscultation. Breath sounds equal bilaterally. No wheezes, rales, or rhonchi. GASTROINTESTINAL: Abdomen soft, non-tender, nondistended. Bowel sounds are active. No hepato-splenomegaly, or palpable masses. No guarding. SKIN: minimal erythremic papules to bilateral lower legs. NEURO: awake, alert, and oriented to person, place and time. There were no obvious focal neurologic abnormalities. EXTREMITIES: No clubbing, cyanosis, or edema. No joint tenderness, effusion, or edema noted. Course Course Level of Care: Express Care Visit Vital Signs Vital signs: Vital Signs Temperature 98.2 F 12/02/22 14:35 Pulse Rate 67 12/02/22 14:35 Respiratory Rate 18 12/02/22 14:35 Blood Pressure 140/94 H 12/02/22 14:35 Pulse Oximetry 98 12/02/22 14:35 Oxygen Delivery Room Air 12/02/22 14:35 Temperature 98.2 F 12/02/22 14:35 Pulse Rate 67 12/02/22 14:35 Respiratory Rate 18 12/02/22 14:35 Blood Pressure 140/94 H 12/02/22 14:35 Pulse Oximetry 98 12/02/22 14:35 Oxygen Delivery Room Air 12/02/22 14:35 reviewed. MDM - Skin/Abscess/Foreign Bdy MDM Narrative Medical decision making narrative: Prevention is always better
== END 2022-12-02 14:48 | disposition home or self-care (01) ==
PROVIDERS: Emergency Provider Nurse Practitioner Family
DX: L25.9 Unspecified contact dermatitis, unspecified cause (principal)
CPT/HCPCS: 99213; G0463

== ENCOUNTER 2025-02-13 20:28 | Emergency (ER) | payer BC, MEDICAID, SELFPAY ==
--- OUTSIDE RECORDS SUMMARY | 2024-04-10 07:30 | XMS_ITS ---
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, * [facility] [place] w/ drug Encounters Encounter Location Date Provider Diagnosis [facility] [address] [place] [address] 04/10/2024 Zay Tapia Pre-employment healt h screening examination Z02.1 Assessments Encounter Date Diagnosis (ICD Code) Assessment Notes Treatment Notes Treatment Clinical Notes Section Notes 04/10/2024 Pre-employment health screening examination (ICD-10 - Z02.1) Plan Of Treatment No Information Progress Notes * Ed JOHN RCDOB:[birth year] (39 yo M)Acc No.[id number]:04/10/2024 Patient: Gaetano MEDRANO Ed Provider: Jersey Tapia PA-C :1985 A ge:39 Y S ex:Male Date:04/10/2024 [address] [facility] [place] Subjective: * Chief Complaints: * 1 . 7:30 a [facility] Pain Management Specialist [place]. 2. * [facility] [place] w/ drug. * Medical History: Objective: * Vitals: Assessment: * Assessment: 1. P re-employment health screening examination - Z02.1 (Primary) Plan: * Treatment: * Procedure Codes: 8 1003 URINALYSIS, AUTO, W/O SCOPE, Modifiers: QW , DSCOL DRUG SCREEN COLLECTION, VISIS VISION SCREEN, HEARS HEARING SCREEN, PHYSI Physical Exam, BTE Physical Demands Test, 65433 LIPID PANEL, 77178 GLYCATED HEMOGLOBIN TEST, LABCL LAB COLLECTION ONLY * Billing Information: * Visit Code: * Procedure Codes: 58552 URINALYSIS, AUTO, W/O SCOPE. Modifiers: QW DSCOL DRUG SCREEN COLLECTION. VISIS VISION SCREEN. HEARS HEARING SCREEN. PHYSI Physical Exam. BTE Physical Demands Test. 92005 LIPID PANEL. 29761 GLYCATED HEMOGLOBIN TEST. LABCL LAB COLLECTION ONLY. * Electronic signature of AILEEN Simons on 02/13/2025 at 09:10 PM CDT Sign off status: Pending * Provider: Jersey Tapia PA-C Date: 1 Generated for Augusto oliveira/Pernell/Angle on: 0 02/13/2025 09:10 PM CDT
--- NOTE | ~2025-02-13 | XR_ITS ---
CHEST RADIOGRAPH, PA AND LATERAL CLINICAL HISTORY: chest pain . COMPARISON: None TECHNIQUE: PA and lateral views of the chest. FINDINGS The cardiomediastinal silhouette is unremarkable. The lungs are clear. IMPRESSION: No focal infiltrate or effusion. Reviewed, dictated and finalized at location A.
--- NOTE | ~2025-02-13 | CT_ITS ---
CLINICAL INDICATION: Left lower quadrant and epigastric pain COMPARISON: 07/14/2020. TECHNIQUE: Multiple contiguous axial images of the abdomen and pelvis were performed following the administration of with 100 mL Omnipaque-350 intravenous contrast The dose-length product (DLP) was 1497.93 mGy-cm. Automated exposure control and iterative reconstruction technique were employed. FINDINGS/OBSERVATIONS: Visualized lower thorax: The bilateral lung bases are clear. The heart is of normal size, without pericardial effusion. Small hiatal hernia is present. Liver: The liver demonstrates homogeneous enhancement and is not enlarged. Gallbladder and biliary system: The gallbladder is only minimally distended, and contains small dependent stones and is otherwise unremarkable. Pancreas: The pancreas enhances homogeneously without ductal dilatation. Spleen: The spleen enhances homogeneously and is not enlarged measuring 8 cm in longitudinal dimension. Kidneys: The bilateral kidneys enhance symmetrically without hydronephrosis or renal calculi. Adrenal glands: Unremarkable. Gastrointestinal tract: Rectosigmoid diverticulosis is identified with mural thickening and surrounding inflammatory change, suggesting acute/early diverticulitis, for which clinical correlation is needed. No gross perforation or drainable fluid collection is present. Appendix: The air-filled appendix is of normal caliber (axial series, images 118 through 134). Vasculature: Unremarkable. Lymph nodes: No pathologically enlarged or morphologically suspicious lymph nodes within the retroperitoneum or at the root of the mesentery. Pelvic structures: The bladder is only minimally distended, and otherwise unremarkable. The prostate gland is not enlarged. Body wall and musculoskeletal: Small fat-containing umbilical hernia. No significant degenerative disease within the lower thoracic or lumbosacral spine. IMPRESSION: Acute diverticulitis of the rectosigmoid colon. No gross perforation. No drainable fluid collection. Reviewed, dictated and finalized at location A.
--- NOTE | 2025-02-13 20:29 | ECG_ITS ---
Test Date: 2025-02-13 20:36:12 Measurements Intervals [place] Rate: 73 P: 40 DC: 154 QRS: 26 QRSD: 98 T: 18 QT: 379 QTc: 419 Interpretive Statements SINUS RHYTHM BASELINE ARTIFACT- I, II, III, AVR, AVL, AVF, V1-V6 NORMAL ECG No previous ECG available for comparison Electronically Signed On 02-14-2025 06:23:18 CDT by Les Putnam D.O.
[2025-02-13 20:42] VITALS: BP 148/87; PULSE 69; RESP 21; TEMP 37.1; O2SAT 96
[2025-02-13] MEDS: ASPIRIN 81 MG CHEWABLE TABLET 324 MG PO (20:42)
[2025-02-13 20:44] LABS: Hematocrit 38.6 % (42.0-52.0); Hemoglobin 13.1 g/dL (14.0-18.0); Immature Granulocyte Percent A 0.4 % (0-0.5); Lymphocytes Absolute Auto 2.04 K/mm3 (0.9-3.2); Mean Corpuscular HGB Conc 33.9 g/dl (32-36); Mean Corpuscular Hemoglobin 29.2 pg (26-34); Mean Corpuscular Volume 86.2 fl (80-100); Nucleated Red Blood Cells Absolute Auto 0.000 K/mm3 (0.0-0.012); Nucleated Red Blood Cells Perc 0.0 % (0.0-0.2); Platelet Count Result 292 k/mm3 (150-375); Red Blood Count 4.48 M/mm3 (4.6-6.20); White Blood Count 10.2 K/mm3 (4.5-10.0)
[2025-02-13 20:47] VITALS: PULSE 73
[2025-02-13 20:48] VITALS: O2SAT 95
--- NOTE | 2025-02-13 20:52 | ED_ITS ---
HPI - Chest Pain General Chief Complaint: Chest Pain Stated Complaint: chest pain, abdominal pain Time Seen by Provider: 02/13/25 20:34 History of Present Illness HPI narrative: 39-year-old male with a history of diverticulitis presents to the emergency department for abdominal pain and chest pain that started at 6:00 p.m. arabella. Patient states he was working on his truck when he had sudden onset sharp pain in his left lower quadrant that travel to his epigastrium and into the left side of his chest. He reports several episodes of nausea and vomiting. He states now the majority of his pain is in his epigastrium. He denies cough, congestion, shortness of breath, hemoptysis, recent surgeries or hospitalizations, history of VTE, urinary complaints, diarrhea, fever. No prior abdominal surgeries. Denies personal or first-degree family cardiac history. Patient denies smoking. Related Data Allergies Allergy/AdvReac Type Severity Reaction Status Date / Time codeine AdvReac Intermediate nausea and Verified 12/02/22 14:29 diaphoresis Review of Systems 2 Review of Systems: All systems reviewed & are unremarkable except as noted in HPI and below PMFSH Past Medical History Medical History Diverticulitis of colon with perforation Surgical History Surgical History No significant past surgical history Family History Family History Mother Arthritis Grandparent Diabetes mellitus Father Hypertension Grandparent Malignant neoplasm Social History Social History Social History: The patient lives at home with his and 4 kids. 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 He wishes to be a full code. 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 HEAD: Normocephalic, atraumatic. EYES: EOMI. ENT: Nares clear, no rhinorrhea or epistaxis. Mucous membranes moist. NECK: Supple. CHEST: Clear to auscultation. No respiratory distress. HEART: Regular rate and rhythm. No murmur heard. Normal peripheral pulses. ABDOMEN: Normoactive bowel sounds. Abdomen soft with tenderness in the left lower quadrant and epigastrium. No rebound or rigidity. Negative Layton sign and McBurney's point. No CVA tenderness EXTREMITIES: Normal range of motion. No edema. Negative Homans bilaterally SKIN: Warm, dry, no rash. NEURO: No focal deficits. Alert and oriented x3 Course Vital Signs Vital signs: Vital Signs Temperature 98.7 F 02/13/25 20:42 Pulse Rate 69 02/13/25 20:42 Respiratory Rate 21 H 02/13/25 20:42 Blood Pressure 148/87 H 02/13/25 20:42 Pulse Oximetry 96 02/13/25 20:42 Oxygen Delivery Room Air 02/13/25 20:42 Temperature 98.7 F 02/13/25 20:42 Pulse Rate 73 02/13/25 20:47 Respiratory Rate 21 H 02/13/25 20:42 Blood Pressure 148/87 H 02/13/25 20:42 Pulse Oximetry 95 02/13/25 20:48 Oxygen Delivery Room Air 02/13/25 20:48 MDM - Chest Pain MDM Narrative Medical decision making narrative: 39-year-old male with history of diverticulitis presents emergency department for sudden-onset left lower quadrant abdominal pain that radiated into his epigastrium and into the left chest that started at 6:00 p.m.. See HPI for further history. Triage vitals with mild hypertension of 148/87 and mild tachypnea of 21, patient is mildly anxious appearing. He is afebrile and nontoxic. Exam is significant for the above. CBC with mild leukocytosis of 10.2. Hemoglobin is 13.1 which is consistent with prior. Chemistries reveal an AST of 66 and ALT of 53. Bilirubin and alk-phos normal. No significant right upper quadrant tenderness on exam. Lipase is within normal limits. EKG shows normal sinus rhythm with a rate of 73 ppm, normal KS interval, normal QRS duration, normal QTC, no ST elevations or depressions. Troponin is undetectable. Chest x-ray shows no acute cardiopulmonary findings. CT abdomen pelvis shows acute diverticulitis of the rectosigmoid colon, no gross perforation, no drainable fluid collection. Patient updated on results. He was given GI cocktail, Pepcid, Zofran and fluids with some improvement, however still having pain. Will provide a dose of morphine and re-evaluate. Patient reporting improvement after morphine. He is tolerating p.o. intake and resting comfortably in exam bed. Feel he is safe for discharge home with Augmentin, zofran and norco for breakthrough pain and outpatient management. Discussed diet changes and follow-up colonoscopy. Advised f/u with PCP and discussed strict ED return precautions. Pt is agreeable with the plan and verbalized understanding. D/c in stable condition. Lab Data 02/13/25 20:39 02/13/25 20:39 Labs: Lab Results 02/13/25 02/13/25 Range/Units 20:39 22:04 WBC 10.2 H (4.5-10.0) K/mm3 RBC 4.48 L (4.6-6.20) M/mm3 Hgb 13.1 L (14.0-18.0) g/dL Hct 38.6 L (42.0-52.0) % MCV 86.2 (80-100) fl MCH 29.2 (26-34) pg MCHC 33.9 (32-36) g/dl RDW 13.3 (11.5-14.5) % Plt Count 292 (150-375) k/mm3 MPV 8.4 (7.4-10.4) fl Immature Gran % (Auto) 0.4 (0-0.5) % Neut % (Auto) 72.4 (45.5-73.1) % Lymph % (Auto) 20.0 (18.3-44.2) % [place] % (Auto) 5.5 (2.6-8.5) % Eos % (Auto) 1.2 (0-4.4) % Baso % (Auto) 0.5 (0.2-1.2) % Lymph # (Auto) 2.04 (0.9-3.2) K/mm3 [place] # (Auto) 0.6 (0.1-0.6) K/mm3 Eos # (Auto) 0.1 (0-0.3) K/mm3 Baso # (Auto) 0.1 (0.0-0.1) K/mm3 Abs Immat Gran (auto) 0.04 H (0.00-0.031) K/mm3 Absolute Neuts (auto) 7.4 H (1.3-6.7) K/mm3 Absolute Nucleated RBC 0.000 (0.0-0.012) K/mm3 Nucleated RBC % 0.0 (0.0-0.2) % PT 12.6 (11.1-14.7) Seconds INR 0.9 APTT 27.0 (22.3-36.8) Seconds Sodium 136 L (137-145) mmol/L Potassium 4.1 (3.4-5.0) mmol/L Chloride 100 (98-107) mmol/L Carbon Dioxide 25 (22-30) mmol/L Anion Gap 11 (4-12) mmol/L BUN 17 (9-20) mg/dL Creatinine 1.02 (0.7-1.3) mg/dL Estim Creat Clear Calc 109 ml/min Estimated GFR > 60 (59 - ) Glucose 116 H (65-110) mg/dL Calcium 9.3 (8.4-10.2) mg/dL Total Bilirubin 0.4 (0.2-1.3) mg/dL AST 66 H (17-59) U/L ALT 53 H (6-50) U/L Alkaline Phosphatase 77 (38-126) U/L Troponin I < 0.012 (0.000-0.034) ng/mL Total Protein 7.7 (6.3-8.2) g/dL Albumin 4.5 (3.5-5.1) g/dL Lipase 80 (23-300) U/L Urine Color Yellow (Yellow) Urine Appearance Clear (Clear) Urine pH 6.0 (5.0-9.0) Ur Specific [place] > 1.045 H (1.001-1.035) Urine Protein Negative (Negative) mg/dL Urine Glucose (UA) Negative (Negative) mg/dL Urine Ketones Negative (Negative) mg/dL Ur Blood (Man) Negative (Negative) Urine Nitrate Negative (Negative) Urine Bilirubin Negative (Negative) Urine Urobilinogen 0.2 (<2.0) mg/dL Leukocyte Esterase Rfl Negative (Negative) YRN/UL Discharge Plan Discharge Clinical Impression: Acute diverticulitis, Elevated AST (SGOT), Elevated alanine aminotransferase (ALT) level Patient Disposition: Home Condition: Stable Instructions: Antibiotic Form, Diverticulitis (DC), Diverticulitis Diet (ED) Additional Instructions: You were evaluated in the emergency department for abdominal pain and chest pain. You were found to have diverticulitis. Please eat a clear liquid diet for the next 2-3 days followed by a bland diet. Please take the antibiotics as directed. Take ondansetron as needed for nausea and hydrocodone as needed for pain. Follow-up with your primary care provider. Please also follow-up with the GI specialist I referred you to she will need a colonoscopy in approximately 6 weeks after you have healed. Return to the emergency department if he develops significantly worsening pain, your unable to tolerate food or fluids, you develop a fever or other concerning symptoms. Additionally you were found have an elevated AST and ALT which are your liver enzymes. Please follow-up with her primary care provider regarding this. Patient Language: Iraqi Prescriptions: New amoxicillin-pot clavulanate 875-125 mg tablet 1 tablet PO Q12H Qty: 14 0RF ondansetron 4 mg tablet,disintegrating 4 mg PO Q8H Qty: 14 0RF hydrocodone-acetaminophen 5-325 mg tablet 1 tablet PO Q8H PRN (Reason: pain) Qty: 10 0RF No Action prednisone 20 mg tablet 40 mg PO DAILY 5 Days Qty: 10 0RF Follow-up/Referrals: PHYSICIAN NOT ON STAFF,NONSTAFF [Primary Care Provider] Peter Ramires MD [Physician, Gastroenterology] Yinka Lane MD [Physician, Family Practice] Quality HEART score for chest pain patients History: slightly suspicious Age: < or = to 45 years Risk factors: 1 or 2 risk factors Troponin: < or = to 1x normal limit
[2025-02-13] MEDS: ONDANSETRON INJ 4 MG/2 ML VIAL IV PUSH (20:57)
[2025-02-13 20:58] LABS: Alanine Aminotransferase 53 U/L (6-50); Albumin Level 4.5 g/dL (3.5-5.1); Alkaline Phosphatase 77 U/L (38-126); Anion Gap 11 mmol/L (4-12); Aspartate Amino Transferase 66 U/L (17-59); Bilirubin,Total 0.4 mg/dL (0.2-1.3); Blood Urea Nitrogen 17 mg/dL (9-20); Calcium 9.3 mg/dL (8.4-10.2); Carbon Dioxide 25 mmol/L (22-30); Chloride 100 mmol/L (98-107); Estimated CRCL calculation 109 ml/min; Estimated Glomerular Filt Rate > 60; Glucose 116 mg/dL (65-110); Lipase 80 U/L (23-300); Potassium 4.1 mmol/L (3.4-5.0); Sodium 136 mmol/L (137-145); Total Protein 7.7 g/dL (6.3-8.2)
[2025-02-13] MEDS: FAMOTIDINE 20 MG/2 ML VIAL IV PUSH (20:58)
[2025-02-13] MEDS: SODIUM CHLORIDE 0.9% IV 1,000 ML 999 ML IV CONT (20:58)
[2025-02-13] MEDS: BELLADONNA ALK/PHENOB ELIX 10 ML, MAG HYDROX/ALUMINUM HYD/SIMETH 30 ML, LIDOCAINE 2% VI... PO (20:58)
[2025-02-13 20:59] LABS: INR 0.9; Partial Thromboplastin Time 27.0 Seconds (22.3-36.8); Prothrombin Time 12.6 Seconds (11.1-14.7)
[2025-02-13 21:09] LABS: Troponin I < 0.012 ng/mL (0.000-0.034)
--- OUTSIDE RECORDS SUMMARY | 2025-02-13 21:10 | XMS_ITS | Patient Health Record ---
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 Prediabetes: 5.7 - 6.4 Diabetes: >6.4 Glycemic control for adults with diabetes: <7.0 Lipid Panel With LDL/HDL Rat io Reviewed date:04/11/2024 11:52:31 AM Interpretation: Performing Lab:[facility], [address] [facility], [place], Phone - [phone], [facility] Notes/Report: Cholesterol, Total 208 100-199 mg/dL Triglycerides 255 0-149 mg/dL HDL Cholesterol 48 >39 mg/dL VLDL Cholesterol Dae 44 5-40 mg/dL LDL Chol Calc (NIH) 116 0-99 mg/dL LDL/HDL Ratio 2.4 0.0-3.6 ratio LDL/HDL Ratio Men Women 1/2 Avg.Risk 1.0 1.5 Avg.Risk 3.6 3.2 2X Avg.Risk 6.2 5.0 3X Avg.Risk 8.0 6.1 Reason For Referral No Information Encounters Encounter Location Date Provider Diagnosis [facility] [address] [place] [address] 04/10/2024 Zay Tapia Pre-employment healt h screening examination Z02.1 Assessments Encounter Date Diagnosis (ICD Code) Assessment Notes Treatment Notes Treatment Clinical Notes Section Notes 04/10/2024 Pre-employment health screening examination (ICD-10 - Z02.1) Plan Of Treatment No Information Insurance Providers Payer Name Payer Address Payer Phone Subscriber Number Group Number Insured Name Patient Relationship to Insured Coverage Start Date Coverage End Date [email or web address].loga [email or web address] John Self - patient is the insured
[2025-02-13 22:11] LABS: Add Urine Microscopic? NO; Appearance Urine Clear (Clear); Glucose Urine UA Negative (Negative); Leukocyte Esterase Ur Negative LEU/UL (Negative); Nitrate Urine Negative (Negative); Specific Grav Ur > 1.045 (1.001-1.035)
[2025-02-13] MEDS: MORPHINE SULFATE (*CRX) 4 MG/ML INJ IV PUSH (22:18)
== END 2025-02-13 23:20 | disposition home or self-care (01) ==
PROVIDERS: Emergency Medicine; Emergency Provider Physician Assistant
DX: K57.32 Diverticulitis of large intestine without perforation or abscess without bleeding (principal); R74.01 Elevation of levels of liver transaminase levels
CPT/HCPCS: 36415; 71046; 74177; 80053; 81003; 83690; 84484; 85025; 85610; 85730; 93005; 96361; 96374; 96375; 99284; A9270; J2270; J2405; J7030; Q9967